=== PATIENT | female | born 1975 | race Caucasian/White ===

== ENCOUNTER → 2018-04-07 | Outpatient (CLI) | payer OTHER ==
--- NOTE | 2018-04-07 14:51 | EXE ---
[place] [address] STRESS ECHOCARDIOGRAM Name: HERNANDEZKIARA Room: [facility]#: [id number] Admission: 04/07/18 Attend Phys: Ricardo Motta, Discharge: Date of : 71 Date of Service: 04/07/18 1451 Report #: [id number] THIS REPORT FOR: //name// APPROVED REPORT Study performed: 04/07/2018 11:25:14 Exam: Stress Echocardiogram Indication: Dyspnea Patient Location: Out-Patient Stress Nurse: Sarahy Morrissey RN Supervising Physician: Ricardo Motta MD Ht: 5 ft 6 in HR: 64 bpm BP: 118/78 mmHg Medical History Medications: Toprol XL Cardiac Risk Factors: Smoking, FHX of CAD Procedure The patient underwent an Exercise Stress Test using the Valdemar Protocol. Blood pressure, heart rate, and EKG were monitored. An Echocardiogram was performed by pulmonary function technician in four stages in quad fashion. At peak stress, four selected images were obtained and placed side by side with resting images for comparison. Stress Test Details Stress Test: Exercise stress testing was performed using a Valdemar protocol. HR Resting HR: 64 bpm Max Heart Rate (APMHR): 176 bpm Max HR Achieved: 158 bpm Target HR (85% APMHR): 149 bpm % of APMHR: 89 Recovery HR: 88 bpm HR response to stress: Normal HR response to stress BP Resting BP: 118/78 mmHg Max BP: 123/73 mmHg Recovery BP: 114/65 mmHg ECG Resting ECG: Sinus Rhythm Stress ECG: Sinus Rhythm, nonspecific [place] [address] STRESS ECHOCARDIOGRAM Name: KIARA HERNANDEZ Room: [facility]#: [id number] Admission: 04/07/18 Attend Phys: Ricardo Motta, Discharge: Date of : 71 Date of Service: 04/07/18 1451 Report #: [id number] ST Change: Upsloping ST depression Maximum ST Deviation: 0.5 mm Arrhythmia: APC's Recovery ECG: Sinus Rhythm, nonspecific ST-T abnormalities Recovery ST Change: Upsloping ST depression Recovery ST Deviation: 0.5 mm Recovery Arrhythmia: VPC Clinical Reason for Termination: Maximal effort Exercise duration: 12 min 57 sec Highest Stage Achieved: Stage 5: 5.0 mph at 18% grade. Exercise capacity: 10.78 METs Overall Exercise Capacity for Age: Excellent Pre-Stress Echo The resting Echocardiogram showed normal left ventricular contractility with an estimated Ejection Fraction of about 55-60%. Post-Stress Echo The stress Echocardiogram showed normal left ventricular contractility with an estimated Ejection Fraction of about 65-70%. Conclusion Clinical Response: Non-ischemic Exercise Capacity: Below Average Stress ECG Response: Indeterminant Stress Echo Images: Non-ischemic low risk stress echo for future cardiac events Other Information Study Quality: Good <Conclusion> low risk stress echo for future cardiac events <ELECTRONICALLY SIGNED> By: Chinedu Veras MD, FACC 04/07/181450 50 50 Chinedu Veras MD, FACC /INF
== END ==
LOC: M.CRD 04-06 11:00
DX: R06.00 Dyspnea, unspecified (principal); R00.2 Palpitations